=== PATIENT | female | born 1960 | race African-American/Black ===

== ENCOUNTER 2021-11-01 10:05 | Outpatient (CLI) | payer MEDICARE, BC | END 2021-11-01 10:06 | disposition home or self-care (01) | LOC: CSHLAB 10:05 | PROVIDERS: ATTEND Internal Medicine Gastroenterology | DX: Z20.822 Contact with and (suspected) exposure to COVID-19 (principal); K21.9 Gastro-esophageal reflux disease without esophagitis; K63.5 Polyp of colon ==

== ENCOUNTER 2021-11-04 07:26 | Day surgery (SDC) | payer MEDICARE, BC ==
[2021-11-01 13:54] VITALS: BMI 31.6
[2021-11-04] MEDS ORDERED: Lidocaine 1% MPF 2 ML VIAL ONE (08:38)
[2021-11-04] MEDS ORDERED: PROPOFOL 60 ML ONE (09:36)
[2021-11-04] MEDS ORDERED: Lidocaine 2% MPF 10 ML AMP (For Epidural Use) ONE (09:36)
[2021-11-04] MEDS ORDERED: Fentanyl 100 MCG/2 ML VIAL ONE (09:36)
[2021-11-04] MEDS ORDERED: Hydrocortisone Sod Succ/PF 100 mg/2 ml Vial ONE (10:07)
[2021-11-04] MEDS ORDERED: PHENYLEPHRINE-NS 100 MCG/ML 10 ML SYRINGE ONE (10:07)
== END 2021-11-04 10:53 | disposition home or self-care (01) ==
LOC: CSHSDC 07:26
PROVIDERS: ATTEND Internal Medicine Gastroenterology
PROC: 0DB98ZZ Excision of Duodenum, Via Natural or Artificial Opening Endoscopic (ICD-10-PCS; principal; 2021-11-04)
PROC: 0DB68ZZ Excision of Stomach, Via Natural or Artificial Opening Endoscopic (ICD-10-PCS; 2021-11-04)
PROC: 0DBK8ZZ Excision of Ascending Colon, Via Natural or Artificial Opening Endoscopic (ICD-10-PCS; 2021-11-04)
PROC: 0DBL8ZZ Excision of Transverse Colon, Via Natural or Artificial Opening Endoscopic (ICD-10-PCS; 2021-11-04)
PROC: 0DBN8ZZ Excision of Sigmoid Colon, Via Natural or Artificial Opening Endoscopic (ICD-10-PCS; 2021-11-04)
PROC: 0DBP8ZZ Excision of Rectum, Via Natural or Artificial Opening Endoscopic (ICD-10-PCS; 2021-11-04)
PROC: 0DBH8ZZ Excision of Cecum, Via Natural or Artificial Opening Endoscopic (ICD-10-PCS; 2021-11-04)
DX: K21.9 Gastro-esophageal reflux disease without esophagitis (principal); K63.5 Polyp of colon; K29.50 Unspecified chronic gastritis without bleeding; K51.90 Ulcerative colitis, unspecified, without complications; K25.9 Gastric ulcer, unspecified as acute or chronic, without hemorrhage or perforation; K44.9 Diaphragmatic hernia without obstruction or gangrene; K57.30 Diverticulosis of large intestine without perforation or abscess without bleeding; K64.9 Unspecified hemorrhoids
CPT/HCPCS: 88305; J1720; J2704; J3010

== ENCOUNTER 2024-02-13 11:56 | Outpatient (CLI) | payer MEDICARE, BC ==
[2024-02-13 12:45] LABS: Hematocrit 43.3 % (34.9-44.5)
== END 2024-02-13 11:57 | disposition home or self-care (01) ==
LOC: CSHLAB 11:56
PROVIDERS: ATTEND Specialist
DX: Z01.818 Encounter for other preprocedural examination (principal); J34.3 Hypertrophy of nasal turbinates; J32.0 Chronic maxillary sinusitis; J32.1 Chronic frontal sinusitis; J32.2 Chronic ethmoidal sinusitis
CPT/HCPCS: 85014; 93005; 93010

== ENCOUNTER 2024-02-15 07:43 | Day surgery (SDC) | payer MEDICARE, BC ==
[2024-02-13 12:41] VITALS: BMI 32.5
[2024-02-15] MEDS ORDERED: Lidocaine 1% w/Epinephrine 1:200K 30 ML VIAL ONE (08:12)
[2024-02-15] MEDS ORDERED: Mupirocin 2% Ointment 22 GM Tube ONE (08:12)
[2024-02-15] MEDS ORDERED: EPINEPHrine 1 MG/ML VIAL ONE ×2 (08:12→09:54)
[2024-02-15] MEDS ORDERED: AFRIN NASAL MIST 15 ML BOT ONE ×2 (08:12→09:07)
[2024-02-15] MEDS ORDERED: Scopolamine 1 mg/72 hour Patch ONE (09:40)
[2024-02-15] MEDS ORDERED: Famotidine/PF 20 mg/2ml Vial ONE (09:40)
[2024-02-15] MEDS ORDERED: SUGAMMADEX SODIUM 200 MG/2 ML VIAL ONE (09:47)
[2024-02-15] MEDS ORDERED: PROPOFOL 40 ML ONE (09:47)
[2024-02-15] MEDS ORDERED: Ondansetron PF 4 MG/2 ML Vial ONE (09:47)
[2024-02-15] MEDS ORDERED: Lidocaine 1% PF 5 ML VIAL ONE (09:47)
[2024-02-15] MEDS ORDERED: Dexamethasone 4 mg/ml Vial ONE (09:47)
[2024-02-15] MEDS ORDERED: Rocuronium Bromide 10 MG/ML (10ML VIAL) ONE (09:47)
[2024-02-15] MEDS ORDERED: fentaNYL 50 mcg/mL 1 mL Vial ONE ×2 (09:49→11:49)
[2024-02-15] MEDS ORDERED: methylPREDNISolone Acetate 40 mg/ml Vial ONE (09:55)
[2024-02-15] MEDS ORDERED: Propofol 1,000 MG/100 ML VIAL IV ONE (09:55)
[2024-02-15] MEDS ORDERED: Oxymetazoline HCl 0.05% ( 15 ML ) ONE (11:18)
[2024-02-15] MEDS ORDERED: HYDROcodone/Acetaminophen 5/325 mg Tablet ONE (12:57)
== END 2024-02-15 13:30 | disposition home or self-care (01) ==
LOC: CSHSDC 07:43
PROVIDERS: ATTEND Specialist
PROC: 09TV8ZZ Resection of Left Ethmoid Sinus, Via Natural or Artificial Opening Endoscopic (ICD-10-PCS; principal; 2024-02-15)
PROC: 09TW8ZZ Resection of Right Sphenoid Sinus, Via Natural or Artificial Opening Endoscopic (ICD-10-PCS; 2024-02-15)
PROC: 09TX8ZZ Resection of Left Sphenoid Sinus, Via Natural or Artificial Opening Endoscopic (ICD-10-PCS; 2024-02-15)
PROC: 09TQ8ZZ Resection of Right Maxillary Sinus, Via Natural or Artificial Opening Endoscopic (ICD-10-PCS; 2024-02-15)
PROC: 09TR8ZZ Resection of Left Maxillary Sinus, Via Natural or Artificial Opening Endoscopic (ICD-10-PCS; 2024-02-15)
PROC: 09TS8ZZ Resection of Right Frontal Sinus, Via Natural or Artificial Opening Endoscopic (ICD-10-PCS; 2024-02-15)
PROC: 09TT8ZZ Resection of Left Frontal Sinus, Via Natural or Artificial Opening Endoscopic (ICD-10-PCS; 2024-02-15)
PROC: 09TU8ZZ Resection of Right Ethmoid Sinus, Via Natural or Artificial Opening Endoscopic (ICD-10-PCS; 2024-02-15)
PROC: 09TL8ZZ Resection of Nasal Turbinate, Via Natural or Artificial Opening Endoscopic (ICD-10-PCS; 2024-02-15)
DX: J34.3 Hypertrophy of nasal turbinates (principal); J32.4 Chronic pansinusitis; J01.41 Acute recurrent pansinusitis; J45.909 Unspecified asthma, uncomplicated; F32.A Depression, unspecified; F41.9 Anxiety disorder, unspecified; G47.33 Obstructive sleep apnea (adult) (pediatric); K21.9 Gastro-esophageal reflux disease without esophagitis; Z98.890 Other specified postprocedural states; Z90.89 Acquired absence of other organs; Z79.899 Other long term (current) drug therapy
CPT/HCPCS: 30140; 31256; 31257; 31276; 61782; J0171; J1010; J1100; J2405; J2704 ×2; J3010; J3490